=== PATIENT | female | born 1980 | race Caucasian/White ===

== ENCOUNTER → 2016-11-13 | Outpatient (CLI) | payer OTHER ==
[~2016-11-13] MED LIST: CYAN1TAB17 PO; PREN1TAB73 PO
--- NOTE | 2016-11-13 14:29 | DI ---
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 Hip joint space is normal. No significant osteophyte formation or degenerative change. AP and frog-leg lateral views of the right hip: No acute fracture or dislocation. Hip joint space is maintained. No significant degenerative changes. Impression: Left hip: No acute osseous abnormality. Right hip: No acute osseous abnormality. .
--- NOTE | 2016-11-13 14:31 | DI ---
Indication: ITS.REASON: M05.79 Rheumatoid arthritis with rheumatoid factor of multiple si PROCEDURE: KNEE BILAT STANDING 2-3 VIEWS: Encounter: Initial Comparison: None Findings: Right knee: No acute fracture or dislocation. Mild medial compartment joint space narrowing. No joint effusion or significant osteophyte formation. Left knee: No acute fracture or dislocation. Mild medial compartment joint space narrowing. No joint effusion or significant osteophyte formation. Impression: Right knee: No acute osseous abnormality. Left knee: No acute osseous abnormality. .
== END ==
LOC: IMA 13:07
PROVIDERS: ATTEND Internal Medicine Rheumatology
DX: M05.79 Rheumatoid arthritis with rheumatoid factor of multiple sites without organ or systems involvement (principal)